=== PATIENT | male | born 1955 | race Caucasian/White ===

== ENCOUNTER 2024-04-04 11:42 | Emergency (ER) | payer OTHER, MEDICARE, SELFPAY ==
[2024-04-04 11:53] VITALS: BP 127/80
[2024-04-04 12:26] LABS: % Basophils 0.7 % (0-2); % Eosinophils 0.5 % (0-6); % Immature Granulocytes 0.5 % (0-0.5); % Lymphocytes 5.8 % (20.5-51.1); % Monocytes 6.5 % (1.7-9.3); Absolute Basophils 0.1 10^3/uL (0-0.2); Absolute Lymphocytes 0.4 10^3/uL (1.2-3.4); Absolute Monocytes 0.5 10^3/uL (0.1-0.6); Absolute Neutrophils 6.3 10^3/uL (1.4-6.5); Hematocrit 41.2 % (39.0-52.0); Hemoglobin 13.7 g/dL (13.0-18.0); Mean Corp Hgb Conc. 33.3 g/dL (33.0-37.0); Mean Corpuscular Hgb 28.5 pg (27.0-31.0); Mean Corpuscular Volume 85.8 fL (80.0-94.0); Mean Platelet Volume 10.4 fL (7.4-10.4); Nucleated Red Blood Cells % 0 % (-); Platelet Count 297 10^3/uL (130-400); Red Cell Dist. Width 13.4 % (11.5-14.5); White Blood Cell Count 7.4 10^3/uL (4.8-10.8)
[2024-04-04 12:28] LABS: Urine Albumin Trace (Neg - Trace); Urine Bilirubin Negative (Negative); Urine Character Clear (Clear); Urine Color Yellow; Urine Glucose 3+ (Negative); Urine Ketone Negative (Negative); Urine Leukocyte Negative (Negative); Urine Nitrite Negative (Negative); Urine Occult Blood Negative (Negative); Urine Urobilinogen Negative (Neg - 1+)
[2024-04-04 12:44] LABS: ALT (SGPT) 41 U/L (0-50); AST (SGOT) 56 U/L (17-59); Albumin 4.6 g/dl (3.5-5.0); Alkaline Phosphatase 56 U/L (38-126); Blood Urea Nitrogen 31 mg/dl (9-20); COVID-19 Antigen Negative (Negative); Calcium 11.1 mg/dl (8.4-10.2); Carbon Dioxide 23 mmol/L (22-30); Chloride 103 mmol/L (98-107); Glucose 262 mg/dl (70-99); Potassium 4.2 mmol/L (3.5-5.1); Sodium 139 mmol/L (135-145); Total Bilirubin 0.4 mg/dl (0.2-1.3); Total Protein 7.2 g/dl (6.3-8.2)
[2024-04-04] MEDS: TYLENOL 1000 MG PO (14:07)
[2024-04-04] MEDS: NSS 1000 IV ×2 (14:08→15:33)
[2024-04-04 14:10] VITALS: BP 131/72
[2024-04-04 15:22] VITALS: BP 132/65
--- NOTE | 2024-04-04 15:25 | ED.GENMED ---
History of Present Illness
General
Chief Complaint: Cold/Flu/URI Symptoms
Source: patient
Exam Limitations: none
Time Seen by Provider: 04/04/24 13:27
Nursing documentation reviewed up to this point in time: agreed with
History of Present Illness
History of Present Illness:
68 y/o M with h/o covid requring admission
here with fatigue, sore throat, dry cough, lower leg pain, feels tired x 2 days
pt says he also felt the urge to urinate but no dysuria
he has IDDM, htn, hld, cad
pt ays he wasn't eating/drinking as well the past 2 days
he feels like he did when he had covid
his HR is usually 90-110s
he doesn't feel sob or have chest pain, abdominal pain, vomiting.
Past History
Past History
ED Past Medical History: HTN, Hypercholesterolemia, NIDDM, NC and Hypothyroidism
ED Past Surgical History: Cardiac (Stent)
Social History
Tobacco: Smoker
Alcohol: Occasional
Personal:
Living: with family
Review of Systems
Review of Systems
Allergies reviewed?: Yes
All Other Systems: Not applicable
Phy Exam
Physical Exam
Physical Exam:
GENERAL: Alert , in no apparent distress nontoxic, no distress
EYE: pupils equal and reactive
NECK: Supple
ENT: b/l TM s clear, pharynx erythematous but no tonsillar hypertrophy or exudates
CARDIAC: Re tachycardic gular rate and rhythm, no edema
LUNGS: Clear breath sounds bilaterally, no acute respiratory distress, no wheezes/rales/rhonchi, occ cough
ABDOMEN: Soft, without focal tenderness, no r/g, no cvat, normal bowel sounds
NEUROLOGICAL: Alert and oriented, no focal neuro deficits, no appreciated leg weakness
SKIN: Warm and dry, skin intact.
MUSCULOSKELETAL: No edema, well perfused.
PSYCH: Normal and appropriate interaction.
Course
Orders/Labs/Results
Orders:
Orders
04/04/24 12:03
COVID-19 Antigen Urgent
Source: Nasal Swab
Complete Blood Count/With Diff Urgent
Comprehensive Metabolic Panel Urgent
Urinalysis Reflex To Culture Urgent
Date Specimen was Collected: 04/04/24
Time Specimen was Collected: 11:57
Influenza A+B Rapid Molecular Urgent
[facility]SA[facility] Source: Nasal Swab
Specimen Description:
04/04/24 13:58
0.9% Sodium Chloride 1000 ml [Nss] 1,000 ml IV BOLUS
Acetaminophen [Tylenol] 1,000 mg PO NOW STA
04/04/24 13:59
CR Chest - 2 Views Urgent
Comment:
Reason For Exam: cough, fever
04/04/24 15:25
0.9% Sodium Chloride 1000 ml [Nss] 1,000 ml IV BOLUS
Ibuprofen [Motrin] 600 mg PO NOW STA
Abnormal Lab Results
04/04/24
12:03
Absolute Lymphs (auto) 0.4 L 10^3/uL
(1.2-3.4)
Neutrophils % 86.0 H %
(42.2-75.2)
Lymphocytes % 5.8 L %
(20.5-51.1)
BUN 31 H mg/dl
(9-20)
Creatinine 1.5 H mg/dL
(0.7-1.3)
Glucose 262 H mg/dl
(70-99)
Calcium 11.1 H mg/dl
(8.4-10.2)
Urine Glucose 3+ A
(Negative)
04/04/24 12:03
04/04/24 12:03
Vital Signs
Initial and Last Documented VS:
Initial Vital Signs
Temp Pulse Resp BP Pulse Ox
37.7 C 111 18 127/80 95
04/04/24 11:53 04/04/24 11:53 04/04/24 11:53 04/04/24 11:53 04/04/24 11:53
Last Documented Vital Signs
Temp Pulse Resp BP Pulse Ox
37.9 C 113 19 126/78 91
04/04/24 16:40 04/04/24 16:23 04/04/24 16:23 04/04/24 16:23 04/04/24 16:23
MDM/Problems Addressed
Differential Diagnosis Includes:
flu, covid, uri, weankess, kidney stone, viral syndrome, dehydration
MDM/Problems Addressed:
68 y/o M with hh/o IDDM, htn, hld, cad
here with 2 days feeling wiped out, achy, cough,
feels like covid
has had fever, but nnot checked temp
on exam pt was febrile for me 102.5
tachy 110s
normotesnive
nontoxic
well appearing
no hypoxia
no weakness in the legs
labs show mild kyaw, bg 200s, normal gap, no ketones in urine, wbc normal, FLU A POS
cxr clear
given fluids and tylenol and temp didn't budge much
given another dose of fuids and motrin and did well
hr down to 100
ambulated well without assistance and no hypoxia
discussed tamiflu,, pt declined
*Critical Care Note
Total Time (30-74mins, 75-104mins- exclusive of procedures): Not Applicable
ED Attending Note
-
Portions of this chart may have been created with voice recognition software.� Occasional wrong word or��sound alike� substitutions may have occurred due to the inherent limitations of voice recognition software.
Discharge Plan
Departure
Patient Disposition: Home (Routine Discharge)
Date of Disposition: 04/04/24
Time of Disposition: 17:14
Patient with high blood pressure during this ER visit?: No
Condition: Fair
Covid-19: Negative COVID-19
Discharge Problem:
Influenza A
Instructions: Flu in adults - Discharge instructions
Prescriptions:
No Action
metformin 1,000 MG tablet
1,000 mg PO HS
atorvastatin 40 MG tablet
40 mg PO QPM Qty: 30 5RF
metoprolol succinate 25 MG tablet extended release 24 hr
25 mg PO QPM Qty: 30 5RF
losartan 50 MG tablet
100 mg PO DAILY
aspirin 81 MG tablet,delayed release (DR/EC)
81 mg PO DAILY
amlodipine 10 MG tablet
10 mg PO DAILY
levothyroxine 125 MCG tablet
125 mcg PO DAILY
glimepiride 4 MG tablet
4 mg PO HS
ibuprofen 200 MG tablet
400 mg PO Q6HPRN PRN (Reason: mild pain/fever)
icosapent ethyl [Vascepa] 1 GM capsule
2 gm PO BID
insulin glargine-lixisenatide [Soliqua 100/33] 3 ML insulin pen
49 units SQ DAILY
famotidine 20 MG tablet
20 mg PO BID Qty: 16 0RF
ascorbic acid (vitamin C) [Vitamin C] 500 MG tablet
1,000 mg PO BID Qty: 32 0RF
melatonin 5 MG tablet
5 mg PO HS Qty: 8 0RF
cholecalciferol (vitamin D3) 2,000 UNITS tablet
2,000 units PO DAILY Qty: 8 0RF
zinc sulfate 220 MG capsule
220 mg PO DAILY Qty: 8 0RF
dexamethasone [Decadron] 6 MG tablet
6 mg PO DAILY Qty: 4 0RF
Referrals:
Argenis Harris PA [Family Provider] - Follow up in 2-3 days
Stand Alone Forms: Return to Work
Activity Restrictions/Additional Instructions:
You have influenza A. Take Tylenol and ibuprofen as needed for your fevers, stay hydrated.
stay home until fever free for 24 hours
return for
confusion, weakness, trouble breathing, vomiting, dehydration, high fever or any concenrs.
Interventions
Interventions:
*Risk Screen - Suicide Last Done: 04/04/24 17:00
*General Assessment Last Done: 04/04/24 14:11
*Neglect/Abuse Screening Last Done: 04/04/24 17:00
ED- Fall Risk Assessment Last Done: 04/04/24 14:11
*ED COVID-19 Vaccine History Last Done: 04/04/24 14:11
*Nursing Disposition Last Done: 04/04/24 17:27
ED- Pulmonary Assessment Last Done: 04/04/24 14:11
Discharge Date and Time
Discharge Date/Time: 04/04/24 17:27
Print Language: GUAMANIAN
[2024-04-04] MEDS: MOTRIN 600 MG PO (15:33)
[2024-04-04 16:23] VITALS: BP 126/78
== END 2024-04-04 17:27 | disposition home or self-care (01) ==
LOC: EMR 11:42
PROVIDERS: Emergency Medicine; EMERGENCY PHYSICIAN Emergency Medicine; FAMILY PHYSICIAN Physician Assistant Medical
DX: J10.1 Influenza due to other identified influenza virus with other respiratory manifestations (principal); N17.9 Acute kidney failure, unspecified; E11.9 Type 2 diabetes mellitus without complications; I10 Essential (primary) hypertension; E78.00 Pure hypercholesterolemia, unspecified; I25.10 Atherosclerotic heart disease of native coronary artery without angina pectoris; E03.9 Hypothyroidism, unspecified; I25.2 Old myocardial infarction; F17.200 Nicotine dependence, unspecified, uncomplicated; Z79.4 Long term (current) use of insulin; Z86.16 Personal history of COVID-19; Z95.5 Presence of coronary angioplasty implant and graft
CPT/HCPCS: 99283; 96360; 71046; 80053; 81003; 85025; 87502; 87811